=== PATIENT | female | born 1975 | race Two or more races ===

== ENCOUNTER 2016-06-11 11:03 | Emergency (ER) | payer MEDICARE, OTHER ==
--- NOTE | ~2016-06-11 | CT4 ---
[facility] A Service of [facility] RADIOLOGY TEXT RESULTS PATIENT: HELLEN DEMPSEY LOCATION: SED : 79 UNIT #: [id number] AGE: [address]: Kt Dempsey MD SEX: F ORDER DR: [id number] [address] [id number] E MR#: [id number] Acc #: [id number] NAME: HELLEN DEMPSEY : 1975 SEX: F STUDY DATE/TIME: 06/11/2016 11:26 UNIT: SED ROOM: STUDY DESCRIPTION: CT Abd and Pelv Wo Cont Attending Physician: Kt Dempsey M.D. Ordering Physician: Kt Dempsey M.D. Primary Care Physician[facility] REPORT This report is preliminary unless electronic signature is present. EXAM CT abdomen and pelvis, without contrast. HISTORY Generalized abdominal pain for the past 2 days with lower back pain. PROCEDURE Unenhanced CT of the abdomen and pelvis. This CT exam was performed with one or more of the following radiation dose reduction techniques: automatic exposure control, adjustment of mA and/or kV according to patient size, and iterative reconstruction. COMPARISON STUDIES 04/17/2016 FINDINGS ABDOMEN WITHOUT CONTRAST: The included lung bases are clear. The liver, spleen, adrenal glands, pancreas, gallbladder have an unremarkable unenhanced appearance. The bowel loops are nondilated. There is moderate colonic stool burden. Punctate, nonobstructing calculus in the left kidney. There is a punctate, nonobstructing calculus in the right kidney. There is no radiodense ureteral calculus or hydronephrosis. PELVIS WITHOUT CONTRAST: No pelvic mass or fluid. No radiodense bladder calculus. Previous hysterectomy. No aggressive-appearing bone lesion. IMPRESSION 1. No acute findings. 2. Tiny nonobstructing calculi in both kidneys. [facility] A Service [facility] RADIOLOGY TEXT RESULTS PATIENT: HELLEN DEMPSEY LOCATION: SED : 77 UNIT #: [id number] AGE: [address]: Kt Dempsey MD SEX: F ORDER DR: 3. Moderate colonic stool burden. Dictated by... Luke Snyder M.D. THIS IS AN ELECTRONICALLY VERIFIED REPORT Luke Snyder M.D. at 06/15/2016 7:02 AM KAREEM/feng TD: 06/11/2016 13:37 JOB #: [id number] MEDICAL IMAGING REPORT
[2016-06-11 10:57] LABS: URINE SOURCE CLEAN CATCH
[2016-06-11 11:01] LABS: URINE APPEARANCE CLEAR; URINE BILIRUBIN NEG (NEG); URINE BLOOD NEG (NEG); URINE COLOR YELLOW; URINE GLUCOSE NEG (NORM); URINE KETONE NEG (NEG); URINE LEUKOCYTE ESTERASE NEG (NEG); URINE NITRATE NEG (NEG); URINE PH 5.5 (5-8); URINE PROTEIN NEG (NEG); URINE SPECIFIC GRAVITY >=1.030 (1.003-1.035); URINE UROBILINOGEN 0.2 MG/DL (NORM)
[2016-06-11 11:02] LABS: MICRO INDICATED? NO
[~2016-06-11 11:03] MED LIST: ACETAMINOPHEN650 M3 PO; ACID RELIEF200 MG PO; ADVAIR 2501 DISK W/1 INH; ALBUTEROL SULFAT8 MG INH; ALBUTEROL17 GM INH; ALLERCLEAR10 MG PO; AMITRIPTYLINE H25 MG PO; AMITRYPTYLINE PO; AMOXICILLIN PO; ASPIRIN EC81 M1 PO; ASPIRIN325 M1 PO; AZITHROMYCIN250 MG PO; BACTRIM DS TABL1 TAB PO; BENTYL20 MG PO; BENZONATATE PO; CARAFATE1 G PO; CARAFATE1 GM PO; CELEXA PO; CELEXA20 MG PO; CIPRO PO; CIPRO500 MG/5 M PO; CITALOPRAM HBR40 M1; CITALOPRAM HBR40 MG PO; CLARITIN10 M2 PO; CLARITIN10 M3 PO; COLACE PO; DICLOFENAC PO; DICYCLOMINE HCL10 MG PO; DICYCLOMINE HCL20 MG PO; DOXYCYCLINE PO; DOXYCYCLINE150 MG PO; ESTRADIOL1 MG PO; FAMOTIDINE PO; FEOSOL PO; FIORINAL 50-321 EACH PO; FISH OIL 1,0001 CAP PO; FLAGYL PO; HYDROCODON-ACE1 EAC7 PO; IBUPROFEN PO; IBUPROFEN600 MG PO; IBUPROFEN800 MG PO; LEVAQUIN PO; LOPRESSOR PO; LORTAB 10-5001 EACH PO; LORTAB 5/500 TA1 TA1 PO; MEDROL4 MG/DOSE- PO; MEDROXYPROGEST2.5 MG PO; METOPROLOL TAR25 MG PO; MIRAPEX0.125 MG PO; MIRAPEX0.25 MG PO; MONTELUKAST SOD10 MG PO; NAPROSYN500 MG PO; NASONEX17 GM; OMEPRAZOLE20 M2 PO; OMEPRAZOLE40 M1 PO; PANTOPRAZOLE SO40 MG PO; PEPCID PO; PERCOCET5/325 PO; PHENAZOPYRIDIN100 MG PO; PHENERGAN PO; PHENERGAN25 M1 PO; PHENERGAN25 MG PO; PHENTERMINE H37.5 M1 PO; PHENTERMINE HCL15 MG PO; PREDNISONE PO; PREDNISONE1 MG; PREDNISONE10 MG/DOSE PO; PREMARIN0.625 MG PO; PREVACID PO; PRILOSEC PO; PRILOSEC20 MG PO; PROAIR HFA8.5 GM INH; PROTONIX PO; PYRIDIUM PO; RA CALCIUM PO; RANITIDINE HCL150 M1 PO; REGLAN10 MG PO; REQUIP1 MG PO; SIMVASTATIN20 MG PO; SIMVASTATIN40 MG PO; SINGULAIR PO; SYMBICORT INH; TAGAMET200 MG PO; VICODIN 5/500 T1 TAB PO; VICODIN PO; VITAMIN D-3 4001 TAB PO; VITAMIN D50000 UNIT PO; VIVELLE B TD; VIVELLE-DO1 PATCH.B2 TD; VOLTAREN75 MG PO; ZANTAC PO; ZANTAC150 MG PO; ZITHROMAX PO; ZOCOR PO; ZOCOR20 MG PO; ZOFRAN ODT4 MG PO; ZOFRAN8 MG PO; [UNRECOGNIZED DRUG - OTHER] TD
[2016-06-11 11:04] LABS: BASOPHIL# 0.1 X10e3 (0-0.3); BASOPHIL% 0.9 % (0-2.5); EOSINOPHIL# 0.2 X10e3 (0-0.7); HEMATOCRIT 37.5 % (35.0-45.0); HEMOGLOBIN 12.5 gm/dL (12.0-16.0); LYMPHOCYTE% 37.7 % (17.0-45.0); MEAN CELL VOLUME 86.4 FL (83-96); MEAN CORPUSCULAR HEMOGLOBIN 28.9 PG (28-34); MEAN CORPUSCULAR HGB CONC 33.4 g/dL (30-36); MEAN PLATELET VOLUME 7.3 FL (6.5-11.5); MONOCYTE# 0.5 X10e3 (0-1.0); MONOCYTE% 6.7 % (3.0-12.0); NEUTROPHIL# 4.2 X10e3 (1.5-7.1); NEUTROPHIL% 52.7 % (40-75); PLATELET COUNT 335 X10e3 (140-420); RED BLOOD COUNT 4.34 X10e (3.90-5.30); WHITE BLOOD COUNT 7.9 X10e3 (4.0-10.5)
[2016-06-11 11:06] LABS: DIFF IND NO
[2016-06-11 11:21] LABS: ALBUMIN SERUM 4.6 g/dL (3.5-5.0); ALKALINE PHOSPHATASE 65 U/L (32-92); ALT (SGPT) 21 U/L (10-40); AMYLASE 26 U/L (0-46); AST (SGOT) 21 U/L (10-42); BILIRUBIN,TOTAL 0.7 mg/dL (0.2-2.0); BLOOD UREA NITROGEN 11 mg/dL (9-23); BUN/CREATININE RATIO 18.33; CALCIUM SERUM 9.1 mg/dL (8.4-10.2); CARBON DIOXIDE 27 mmol/L (22-31); CHLORIDE 103 mmol/L (100-111); CREATININE SERUM 0.6 mg/dL (0.6-1.4); GLOM FILT RATE Estimated ABOVE60 mL/min (>60); GLUCOSE FASTING 90 mg/dL (70-110); LIPASE 30 U/L (22-51); POTASSIUM 3.5 mmol/L (3.5-5.1); PROTEIN TOTAL SERUM 7.3 g/dL (6.0-8.3); SODIUM 138 mmol/L (135-145)
[2016-06-11 11:29] LABS: BILIRUBIN, DIRECT <0.1 mg/dL (0.0-0.2); BILIRUBIN,INDIRECT 0.6 mg/dL (0.0-0.9)
[2016-12-25] MEDS ORDERED: AMITRYPTYLINE (15:20)
[2016-12-25] MEDS ORDERED: LINZESS72 MCG (15:20)
[2016-12-25] MEDS ORDERED: LIPITOR (15:21)
== END 2016-06-11 12:08 | disposition home or self-care (01) ==
LOC: SED 11:03
PROVIDERS: Emergency Medicine
DX: R10.9 Unspecified abdominal pain (principal); M54.9 Dorsalgia, unspecified; I10 Essential (primary) hypertension
CPT/HCPCS: 36415; 74176; 80048; 80076; 81003; 82150; 83690; 84703; 85025; 96374; 99284; J1885

== ENCOUNTER 2016-07-03 18:43 | Emergency (ER) | payer MEDICARE, OTHER ==
--- NOTE | ~2016-07-03 | CR72 ---
[facility] A Service of [facility] RADIOLOGY TEXT RESULTS PATIENT: HELLEN DEMPSEY LOCATION: SED : 77 UNIT #: [id number] AGE: [address]: Jamar Danielson MD SEX: F ORDER DR: [id number] [place] [id number] E MR#: [id number] Acc #: [id number] NAME: HELLEN DEMPSEY : 1975 SEX: F STUDY DATE/TIME: 07/03/2016 19:01 UNIT: SED ROOM: STUDY DESCRIPTION: CR Chest Single View Portable Attending Physician: Jamar Danielson M.D. Ordering Physician: Jamar Danielson M.D. Primary Care Physician: [facility] IMAGING REPORT This report is preliminary unless electronic signature is present. EXAM Chest x-ray HISTORY Cough and chest pain for 2 days. History of hypertension, COPD, smoker. COMMENT Single frontal portable view of the chest, timed 1901, 07/03/2016 COMPARISON 05/22/2016 FINDINGS Cardiac silhouette size is top normal. There is a small amount of probable atelectasis at the right lung base, but please exclude any concern for early pneumonia or aspiration. Lungs are otherwise clear and there is no congestive failure, pleural effusion or pneumothorax suspected. IMPRESSION Small amount of airspace disease at the right lung base medially. It is probably a small amount of atelectasis, but given history, please exclude clinical concern for aspiration or early pneumonia with follow up to clearing recommended. Dictated by... Alejandra Campos M.D. THIS IS AN ELECTRONICALLY VERIFIED REPORT Alejandra Campos M.D. at 07/04/2016 3:09 PM [facility] A Service [facility] RADIOLOGY TEXT RESULTS PATIENT: HELLEN DEMPSEY LOCATION: SED : 77 UNIT #: [id number] AGE: [address]: Jamar Danielson MD SEX: F ORDER DR: MELIDA/tyler TD: 07/04/2016 14:46 JOB #: [id number] MEDICAL IMAGING REPORT Page 1 of 1
[2016-07-03 18:43] LABS: URINE SOURCE CLEAN CATCH
[2016-07-03 18:50] LABS: URINE APPEARANCE CLEAR; URINE BILIRUBIN NEG (NEG); URINE BLOOD NEG (NEG); URINE COLOR YELLOW; URINE GLUCOSE NEG (NORM); URINE KETONE NEG (NEG); URINE LEUKOCYTE ESTERASE NEG (NEG); URINE NITRATE NEG (NEG); URINE PROTEIN NEG (NEG); URINE SPECIFIC GRAVITY 1.015 (1.003-1.035); URINE UROBILINOGEN 0.2 MG/DL (NORM)
[2016-07-03] MEDS ORDERED: PROTONIX PO (18:52)
[2016-07-03] MEDS ORDERED: BENTYL20 MG PO (18:52)
[2016-07-03] MEDS ORDERED: AMOXICILLIN500 M1 PO (18:53)
[2016-07-03] MEDS ORDERED: ZOCOR PO (18:53)
[2016-07-03 19:01] LABS: MICRO INDICATED? NO
[2016-07-03 21:05] LABS: BASOPHIL# 0.1 X10e3 (0-0.3); BASOPHIL% 0.7 % (0-2.5); EOSINOPHIL# 0.1 X10e3 (0-0.7); EOSINOPHIL% 1.5 % (0.0-7.0); HEMATOCRIT 40.5 % (35.0-45.0); LYMPHOCYTE# 2.7 X10e3 (1.0-3.5); LYMPHOCYTE% 33.2 % (17.0-45.0); MEAN CELL VOLUME 86.3 FL (83-96); MEAN CORPUSCULAR HEMOGLOBIN 29.8 PG (28-34); MEAN CORPUSCULAR HGB CONC 34.6 g/dL (30-36); MEAN PLATELET VOLUME 7.9 FL (6.5-11.5); MONOCYTE# 0.5 X10e3 (0-1.0); MONOCYTE% 5.6 % (3.0-12.0); NEUTROPHIL# 4.8 X10e3 (1.5-7.1); PLATELET COUNT 357 X10e3 (140-420); RED BLOOD COUNT 4.69 X10e (3.90-5.30); RED CELL DISTRIBUTION WIDTH 12.6 % (11.0-15.5); WHITE BLOOD COUNT 8.1 X10e3 (4.0-10.5)
[2016-07-03 21:07] LABS: DIFF IND NO
[2016-07-03 21:08] LABS: ALBUMIN SERUM 4.6 g/dL (3.5-5.0); BILIRUBIN,TOTAL 0.4 mg/dL (0.2-2.0); BUN/CREATININE RATIO 17.14; CALCIUM SERUM 9.5 mg/dL (8.4-10.2); CREATININE SERUM 0.7 mg/dL (0.6-1.4); GLOM FILT RATE Estimated 109.9 mL/min (>60); POTASSIUM 4.1 mmol/L (3.5-5.1); PROTEIN TOTAL SERUM 8.1 g/dL (6.0-8.3)
[2016-07-03 21:19] LABS: POC - CKMB <1.0 ng/mL (0.0-7.9); POC - MYOGLOBIN 42.8 ng/mL (0.0-169.0); POC - TROPONIN <0.05 ng/mL (<=0.05)
[2016-12-25] MEDS ORDERED: AMITRYPTYLINE (15:20)
[2016-12-25] MEDS ORDERED: LINZESS72 MCG (15:20)
[2016-12-25] MEDS ORDERED: LIPITOR (15:21)
== END 2016-07-03 21:30 | disposition home or self-care (01) ==
LOC: SED 18:43
PROVIDERS: Emergency Medicine
DX: J18.9 Pneumonia, unspecified organism (principal); M94.0 Chondrocostal junction syndrome [Tietze]; F17.200 Nicotine dependence, unspecified, uncomplicated; J44.9 Chronic obstructive pulmonary disease, unspecified; K21.9 Gastro-esophageal reflux disease without esophagitis; E78.5 Hyperlipidemia, unspecified; Z90.710 Acquired absence of both cervix and uterus
CPT/HCPCS: 71010; 80053; 81003; 82553; 83874; 84484; 85025; 96361; 96365; 96375; 99284; J0696; J1170; J1885; J2405; J3360

== ENCOUNTER 2016-07-04 23:59 | Emergency (ER) | payer MEDICARE, OTHER ==
--- NOTE | ~2016-07-04 | EKG ---
PATIENT: HELLEN DEMPSEY UNIT #: [id number] Ventricular Rate: 102 BPM Atrial Rate: 102 BPM P-R Interval: 128 ms QRS Duration: 74 ms Q-T Interval: 352 ms QTC Calculation(Bezet): 458 ms P [place]: 35 degrees Calculated R [place]: 66 degrees Calculated T [place]: 10 degrees Diagnosis Line: Sinus tachycardia Diagnosis Line: Possible Left atrial enlargement Diagnosis Line: Borderline ECG Diagnosis Line: When compared with ECG of 22-MAY-2016 13:12, Diagnosis Line: No significant change was found Diagnosis Line: Confirmed by KATHY MANZO MD ([id number]) on 07/06/2016 Diagnosis Line: 11:05:40 PM INTERPRETING MD: JOVANY RUCKER
--- NOTE | ~2016-07-04 | CT16 ---
[facility] A Service of [facility] RADIOLOGY TEXT RESULTS PATIENT: HELLEN DEMPSEY LOCATION: [facility] : 77 UNIT #: [id number] AGE: [address]: Kathleen Maya MD SEX: F ORDER DR: [id number] [facility] [address] [facility]. [place], [place] [address] [id number] E MR#: [id number] Acc #: [id number] NAME: HELLEN DEMPSEY : 1975 SEX: F STUDY DATE/TIME: 07/05/2016 2:04 UNIT: [facility] ROOM: STUDY DESCRIPTION: CT Angio Chest for PE Attending Physician: Kathleen Maya M.D. Ordering Physician: Kathleen Maya M.D. Primary Care Physician: [facility] MEDICAL IMAGING REPORT This report is preliminary unless electronic signature is present EXAM CTA of the chest PE protocol INDICATION Shortness of air. Left-sided chest pain for the past 3 days. PROCEDURE Contrast-enhanced CTA of the chest attention on opacification of pulmonary arteries. Coronal 3-D MIP sagittal reformatted images reconstructed and submitted. 80 mL Isovue-370. COMPARISON 11/16/[address] exam was performed with one or more of the following radiation dose reduction techniques: automatic exposure control, adjustment of mA and/or kV according to patient size, and iterative reconstruction. FINDINGS No evidence for pulmonary embolus or acute aortic injury. No adenopathy. No acute findings in the included upper abdomen. No aggressive appearing bone lesion. The lungs are clear. IMPRESSION No acute findings. No evidence for pulmonary embolus. Dictated by... Luke Snyder M.D. THIS IS AN ELECTRONICALLY VERIFIED REPORT Luke Snyder M.D. at 07/05/2016 9:55 PM KAREEM/tish [facility] A Service of [facility] RADIOLOGY TEXT RESULTS PATIENT: HELLEN DEMPSEY LOCATION: [facility] : 77 UNIT #: [id number] AGE: [address]: Kathleen Maya MD SEX: F ORDER DR: TD: 07/05/2016 08:03 JOB #: [id number] MEDICAL IMAGING REPORT Page 1 of 1 COPY
[~2016-07-04 23:59] MED LIST changes: +AMOXICILLIN500 M1 PO
[2016-07-05 01:00] LABS: POC - CKMB <1.0 ng/mL (0.0-7.9); POC - TROPONIN <0.05 ng/mL (<=0.05)
[2016-07-05 01:10] LABS: BASOPHIL# 0.1 X10e3 (0-0.3); BASOPHIL% 0.6 % (0-2.5); EOSINOPHIL# 0.2 X10e3 (0-0.7); EOSINOPHIL% 2.3 % (0.0-7.0); HEMATOCRIT 41.2 % (35.0-45.0); HEMOGLOBIN 13.6 gm/dL (12.0-16.0); LYMPHOCYTE# 3.6 X10e3 (1.0-3.5); LYMPHOCYTE% 39.7 % (17.0-45.0); MEAN CELL VOLUME 87.1 FL (83-96); MEAN CORPUSCULAR HEMOGLOBIN 28.7 PG (28-34); MEAN CORPUSCULAR HGB CONC 32.9 g/dL (30-36); MEAN PLATELET VOLUME 7.7 FL (6.5-11.5); MONOCYTE# 0.4 X10e3 (0-1.0); MONOCYTE% 4.8 % (3.0-12.0); NEUTROPHIL# 4.8 X10e3 (1.5-7.1); NEUTROPHIL% 52.6 % (40-75); PLATELET COUNT 346 X10e3 (140-420); RED BLOOD COUNT 4.73 X10e (3.90-5.30); WHITE BLOOD COUNT 9.1 X10e3 (4.0-10.5)
[2016-07-05 01:13] LABS: DIFF IND NO
[2016-07-05 01:34] LABS: INFLUENZA A NEG (NEG); INFLUENZA B NEG (NEG)
[2016-07-05 01:42] LABS: ALBUMIN SERUM 4.8 g/dL (3.5-5.0); ALKALINE PHOSPHATASE 68 U/L (32-92); ALT (SGPT) 26 U/L (10-40); AST (SGOT) 22 U/L (10-42); BILIRUBIN,TOTAL 0.4 mg/dL (0.2-2.0); BLOOD UREA NITROGEN 11 mg/dL (9-23); BUN/CREATININE RATIO 18.33; CALCIUM SERUM 9.9 mg/dL (8.4-10.2); CARBON DIOXIDE 27 mmol/L (22-31); CHLORIDE 104 mmol/L (100-111); CREATININE SERUM 0.6 mg/dL (0.6-1.4); GLOM FILT RATE Estimated 115.6 mL/min (>60); GLUCOSE FASTING 92 mg/dL (70-110); LIPASE 24 U/L (22-51); POTASSIUM 3.9 mmol/L (3.5-5.1); PROTEIN TOTAL SERUM 8.2 g/dL (6.0-8.3); SODIUM 141 mmol/L (135-145)
[2016-07-05 01:44] LABS: BILIRUBIN, DIRECT <0.1 mg/dL (0.0-0.2); BILIRUBIN,INDIRECT 0.3 mg/dL (0.0-0.9)
[2016-12-25] MEDS ORDERED: AMITRYPTYLINE (15:20)
[2016-12-25] MEDS ORDERED: LINZESS72 MCG (15:20)
[2016-12-25] MEDS ORDERED: LIPITOR (15:21)
== END 2016-07-05 02:55 | disposition home or self-care (01) ==
LOC: CED 23:59
PROVIDERS: Student in an Organized Health Care Education/Training Program
DX: R09.1 Pleurisy (principal); I10 Essential (primary) hypertension; J44.9 Chronic obstructive pulmonary disease, unspecified; F17.210 Nicotine dependence, cigarettes, uncomplicated; Z79.899 Other long term (current) drug therapy
CPT/HCPCS: 36415; 71275; 80048; 80076; 82553; 83690; 83880; 84484; 85025; 87804; 93005; 96361; 96374; 96375; 99284; J2270; J2405; Q9967

== ENCOUNTER 2016-08-04 13:19 | Emergency (ER) | payer MEDICARE, OTHER ==
--- NOTE | ~2016-08-04 | CR230 ---
[facility]. [facility] A Service of [facility] & [facility] RADIOLOGY TEXT RESULTS PATIENT: HELLEN DEMPSEY LOCATION: SED : 77 UNIT #: [id number] AGE: [address]: Justin Cabral MD SEX: F ORDER DR: [id number] [address] [id number] E MR#: [id number] Acc #: [id number] NAME: HELLEN DEMPSEY : 1975 SEX: F STUDY DATE/TIME: 08/04/2016 13:28 UNIT: SED ROOM: STUDY DESCRIPTION: CR Shoulder Min 2 View Rt Attending Physician: Justin Cabral M.D. Ordering Physician: Justin Cabral M.D. Primary Care Physician: [facility] MEDICAL IMAGING REPORT This report is preliminary unless electronic signature is present. EXAM Right shoulder series 08/04/2016 HISTORY Pain status post fall. Fell, hit right side, pain, 3 days ago. AP internal and external rotation views of the shoulder are presented with transscapular view. Poor quality study. Clothing artifact overlies relevant anatomy. FINDINGS No traumatic fracture or malalignment. Acromioclavicular and glenohumeral joint relationships are normal. The periarticular soft tissues show no clearly acute abnormality. There is a faint calcification projecting in the subcutaneous fat cephalad to the acromion favored to be chronic in time course. The visualized ribs are intact. Visualized pulmonary parenchyma clear. Dictated by... Raúl Forrest M.D. THIS IS AN ELECTRONICALLY VERIFIED REPORT Raúl Forrest M.D. at 08/05/2016 10:55 PM Jethro TD: 08/04/2016 15:21 JOB #: [id number] MEDICAL IMAGING REPORT Page 1 of 1
--- NOTE | ~2016-08-04 | CR282 ---
[facility]. [facility] A Service of [facility] RADIOLOGY TEXT RESULTS PATIENT: HELLEN DEMPSEY LOCATION: SED : 79 UNIT #: [id number] AGE: [address]: Justin Cabral MD SEX: F ORDER DR: [id number] [address] [address] [id number] E MR#: [id number] Acc #: [id number] NAME: HELLEN DEMPSEY : 1975 SEX: F STUDY DATE/TIME: 08/04/2016 13:28 UNIT: SED ROOM: STUDY DESCRIPTION: CR Wrist Min 3 View Rt Attending Physician: Justin Cabral M.D. Ordering Physician: Justin Cabral M.D. [facility] REPORT This report is preliminary unless electronic signature is present. EXAM Right wrist series. DATE OF EXAM 08/04/2016 HISTORY Fall. Pain. 3 days duration. Fell. Hit right side. Pain. FINDINGS AP, lateral and oblique radiographs of the right wrist are presented. No traumatic fracture or malalignment. Joint spaces are intact. No soft tissue defect, subcutaneous air or radiodense foreign body. Dictated by... Raúl Forrest M.D. THIS IS AN ELECTRONICALLY VERIFIED REPORT Raúl Forrest M.D. at 08/05/2016 10:55 PM MARY KATE/yamel TD: 08/04/2016 15:39 JOB #: [id number] MEDICAL IMAGING REPORT Page 1 of 1
--- NOTE | ~2016-08-04 | CR94 ---
[facility] A Service of [facility] & [facility] RADIOLOGY TEXT RESULTS PATIENT: HELLEN DEMPSEY LOCATION: SED : 77 UNIT #: [id number] AGE: [address]: Justin Cabral MD SEX: F ORDER DR: [id number] [address] [address] [id number] E MR#: [id number] Acc #: [id number] NAME: HELLEN DEMPSEY : 1975 SEX: F STUDY DATE/TIME: 08/04/2016 13:28 UNIT: SED ROOM: STUDY DESCRIPTION: CR Elbow Min 3 Views Rt Attending Physician: Justin Cabral M.D. Ordering Physician: Justin Cabral M.D. Primary Care Physician: [facility] REPORT This report is preliminary unless electronic signature is present. EXAM Right elbow series, 08/04/2016. HISTORY Pain status post fall. Fall, pain, 3 days duration. Fell his right side pain. TECHNIQUE AP, lateral and oblique radiographs of the right elbow are presented. FINDINGS No traumatic fracture or malalignment. The joint spaces are intact. No joint effusion. No soft tissue defect, subcutaneous air, or radiodense foreign body. Chronic bony excrescence from the posterior aspect of the olecranon process. Dictated by... Raúl Forrest M.D. THIS IS AN ELECTRONICALLY VERIFIED REPORT Raúl Forrest M.D. at 08/05/2016 10:55 PM MARY KATE/jacobo TD: 08/04/2016 15:26 JOB #: [id number] MEDICAL IMAGING REPORT Page 1 of 1
[2016-12-25] MEDS ORDERED: AMITRYPTYLINE (15:20)
[2016-12-25] MEDS ORDERED: LINZESS72 MCG (15:20)
[2016-12-25] MEDS ORDERED: LIPITOR (15:21)
== END 2016-08-04 14:16 | disposition home or self-care (01) ==
LOC: SED 13:19
DX: S50.01XA Contusion of right elbow, initial encounter (principal); I10 Essential (primary) hypertension; J44.9 Chronic obstructive pulmonary disease, unspecified; W01.0XXA Fall on same level from slipping, tripping and stumbling without subsequent striking against object, initial encounter
CPT/HCPCS: 29260; 73030; 73080; 73110; 99284

== ENCOUNTER 2016-08-23 21:27 | Emergency (ER) | payer MEDICARE, OTHER ==
--- NOTE | ~2016-08-23 | CT2 ---
[facility] A Service of [facility] RADIOLOGY TEXT RESULTS PATIENT: HELLEN GARCIA LOCATION: SED : 79 UNIT #: [id number] AGE: [address]: Raúl Galan SEX: F ORDER DR: [id number] [address] [address] [id number] E MR#: [id number] Acc #: [id number] NAME: HELLEN GARCIA : 1975 SEX: F STUDY DATE/TIME: 08/23/2016 22:59 UNIT: SED ROOM: STUDY DESCRIPTION: CT Abd and Pelv W Cont Attending Physician: Raúl Galan P.A.-C. Ordering Physician: Raúl Galan P.A.-C. Primary Care Physician: [facility] IMAGING REPORT This report is preliminary unless electronic signature is present. EXAM CT abdomen and pelvis INDICATION Vomiting and diarrhea for [address] of the abdomen and pelvis with p.o. and IV contrast utilizing 100 mL Isovue-370 IV contrast. Coronal and sagittal reconstructions were obtained. This CT exam was performed with one or more of the following radiation dose reduction techniques: automatic exposure control, adjustment of mA and/or kV according to patient size, and iterative reconstruction. COMPARISON CT abdomen and pelvis dated 04/17/2016. FINDINGS ABDOMEN: There is mild area of circumferential thickening of the ascending colon. There is some associated pericolonic inflammation. This is indicative of a colitis. There is an increased number of small lymph nodes in the right lower quadrant mesentery. The appendix is not clearly identified and may be surgically absent. There is a small umbilical hernia. The solid abdominal organs enhance normally. The gallbladder is not distended. PELVIS: No pelvic mass. Bladder is unremarkable. The uterus and ovaries are not identified and are presumed to be surgically absent. No enlarged pelvic or inguinal lymph nodes. [facility] A Service of [facility] RADIOLOGY TEXT RESULTS PATIENT: HELLEN GARCIA LOCATION: SED : [birth year] UNIT #: [id number] AGE: [address]: Raúl Galan SEX: F ORDER DR: No acute osseous abnormalities. There is asymmetric fusion of the right sacroiliac joint. 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 IMPRESSION 1. Mild circumferential thickening of the ascending colon consistent with a colitis. 2. No abscess or perforation. Dictated by... Alf Artis M.D. THIS IS AN ELECTRONICALLY VERIFIED REPORT Alf Artis M.D. at 08/24/2016 9:08 PM WOJCIECH/malissa TD: 08/24/2016 03:06 JOB #: [id number] MEDICAL IMAGING REPORT Page 1 of 1
[2016-08-23 22:40] LABS: BASOPHIL% 0.4 % (0-2.5); EOSINOPHIL% 0.2 % (0.0-7.0); HEMATOCRIT 36.5 % (35.0-45.0); HEMOGLOBIN 12.7 gm/dL (12.0-16.0); LYMPHOCYTE# 1.4 X10e3 (1.0-3.5); LYMPHOCYTE% 16.2 % (17.0-45.0); MEAN CELL VOLUME 84.4 FL (83-96); MEAN CORPUSCULAR HEMOGLOBIN 29.3 PG (28-34); MEAN CORPUSCULAR HGB CONC 34.8 g/dL (30-36); MEAN PLATELET VOLUME 7.3 FL (6.5-11.5); MONOCYTE# 0.5 X10e3 (0-1.0); MONOCYTE% 5.7 % (3.0-12.0); NEUTROPHIL# 6.9 X10e3 (1.5-7.1); NEUTROPHIL% 77.5 % (40-75); PLATELET COUNT 291 X10e3 (140-420); RED BLOOD COUNT 4.32 X10e (3.90-5.30); WHITE BLOOD COUNT 8.9 X10e3 (4.0-10.5)
[2016-08-23 22:41] LABS: DIFF IND NO
[2016-08-23 22:52] LABS: ALBUMIN SERUM 4.4 g/dL (3.5-5.0); BILIRUBIN, DIRECT 0.1 mg/dL (0.0-0.2); BILIRUBIN,INDIRECT 0.4 mg/dL (0.0-0.9); BILIRUBIN,TOTAL 0.5 mg/dL (0.2-2.0); BUN/CREATININE RATIO 11.42; CALCIUM SERUM 9.2 mg/dL (8.4-10.2); CREATININE SERUM 0.7 mg/dL (0.6-1.4); GLOM FILT RATE Estimated 109.1 mL/min (>60); POTASSIUM 3.9 mmol/L (3.5-5.1); PROTEIN TOTAL SERUM 7.2 g/dL (6.0-8.3)
[2016-08-23 23:50] LABS: URINE SOURCE CLEAN CATCH
[2016-08-23 23:55] LABS: URINE APPEARANCE CLEAR; URINE BILIRUBIN NEG (NEG); URINE BLOOD NEG (NEG); URINE COLOR YELLOW; URINE GLUCOSE NEG (NORM); URINE KETONE NEG (NEG); URINE LEUKOCYTE ESTERASE NEG (NEG); URINE NITRATE NEG (NEG); URINE PH 5.5 (5-8); URINE PROTEIN NEG (NEG); URINE SPECIFIC GRAVITY <=1.005 (1.003-1.035); URINE UROBILINOGEN 0.2 MG/DL (NORM)
[2016-08-23 23:56] LABS: MICRO INDICATED? NO
[2016-12-25] MEDS ORDERED: LINZESS72 MCG (15:20)
[2016-12-25] MEDS ORDERED: AMITRYPTYLINE (15:20)
[2016-12-25] MEDS ORDERED: LIPITOR (15:21)
== END 2016-08-24 00:45 | disposition home or self-care (01) ==
LOC: SED 21:27
PROVIDERS: Physician Assistant
DX: K52.9 Noninfective gastroenteritis and colitis, unspecified (principal); I10 Essential (primary) hypertension; J45.909 Unspecified asthma, uncomplicated
CPT/HCPCS: 36415; 74177; 80048; 80076; 81003; 83690; 85025; 96361; 96374; 96375; 99284; J1170; J2270; J2405; Q9967

== ENCOUNTER 2016-10-03 11:12 | Emergency (ER) | payer MEDICARE, OTHER ==
--- NOTE | ~2016-10-03 | CT2 ---
[facility] A Service of [facility] RADIOLOGY TEXT RESULTS PATIENT: HELLEN GARCIA LOCATION: SED : 79 UNIT #: [id number] AGE: [address]: NUBIA WATERMAN SEX: F ORDER DR: [id number] [place] [id number] E MR#: [id number] Acc #: [id number] NAME: HELLEN GARCIA : 1975 SEX: F STUDY DATE/TIME: 10/03/2016 12:58 UNIT: SED ROOM: STUDY DESCRIPTION: CT Abd and Pelv W Cont Attending Physician: Nubia Waterman Aprn Ordering Physician: Nubia Waterman Aprn Primary Care Physician: [facility] IMAGING REPORT This report is preliminary unless electronic signature is present. EXAM CT abdomen and pelvis with IV contrast HISTORY Abdomen pain, vomiting and diarrhea for [address] exam was performed with one or more of the following radiation dose reduction techniques: automatic exposure control, adjustment of mA and/or kV according to patient size, and iterative reconstruction. FINDINGS CT abdomen and pelvis was performed with IV contrast. CT ABDOMEN: Mild diffuse fatty infiltration of the liver. No hepatic mass or biliary dilatation. Gallbladder, spleen, pancreas, right kidney, and adrenal glands are normal. Two small nonobstructing stones in the left kidney, each measuring 2 mm. No bowel dilatation. No ascites. Normal caliber abdominal aorta. CT PELVIS: No pelvic mass or fluid collection. No bowel dilatation. Hysterectomy. Urinary bladder is unremarkable. Bony fusion across the right sacroiliac joint. IMPRESSION 1. No acute findings in the abdomen or pelvis. 2. No free fluid or inflammatory changes. 3. Two small nonobstructing stones in the left kidney, each measuring 2 mm. 4. Bony fusion across the right sacroiliac joint. [facility] A Service [facility] RADIOLOGY TEXT RESULTS PATIENT: HELLEN GARCIA LOCATION: SED : 79 UNIT #: [id number] AGE: [address]: NUBIA WATERMAN SEX: F ORDER DR: Dictated by... Doug Enriquez M.D. THIS IS AN ELECTRONICALLY VERIFIED REPORT Doug Enriquez M.D. at 10/04/2016 5:33 PM JAMESON/malissa TD: 10/04/2016 00:07 JOB #: [id number] MEDICAL IMAGING REPORT Page 1 of 1
[2016-10-03 12:12] LABS: BASOPHIL% 0.6 % (0-2.5); EOSINOPHIL# 0.1 X10e3 (0-0.7); EOSINOPHIL% 1.9 % (0.0-7.0); HEMATOCRIT 37.2 % (35.0-45.0); HEMOGLOBIN 12.6 gm/dL (12.0-16.0); LYMPHOCYTE# 2.5 X10e3 (1.0-3.5); LYMPHOCYTE% 33.2 % (17.0-45.0); MEAN CELL VOLUME 85.4 FL (83-96); MEAN PLATELET VOLUME 7.5 FL (6.5-11.5); MONOCYTE# 0.5 X10e3 (0-1.0); MONOCYTE% 5.9 % (3.0-12.0); NEUTROPHIL# 4.5 X10e3 (1.5-7.1); NEUTROPHIL% 58.4 % (40-75); PLATELET COUNT 296 X10e3 (140-420); RED BLOOD COUNT 4.36 X10e (3.90-5.30); RED CELL DISTRIBUTION WIDTH 13.6 % (11.0-15.5); WHITE BLOOD COUNT 7.7 X10e3 (4.0-10.5)
[2016-10-03 12:15] LABS: DIFF IND NO
[2016-10-03 12:18] LABS: URINE APPEARANCE CLEAR; URINE BILIRUBIN NEG (NEG); URINE BLOOD NEG (NEG); URINE COLOR YELLOW; URINE GLUCOSE NEG (NORM); URINE KETONE NEG (NEG); URINE LEUKOCYTE ESTERASE NEG (NEG); URINE NITRATE NEG (NEG); URINE PROTEIN NEG (NEG); URINE SOURCE CLEAN CATCH; URINE UROBILINOGEN 0.2 MG/DL (NORM)
[2016-10-03 12:19] LABS: MICRO INDICATED? NO
[2016-10-03 12:36] LABS: ALBUMIN SERUM 4.4 g/dL (3.5-5.0); ALKALINE PHOSPHATASE 75 U/L (32-92); ALT (SGPT) 36 U/L (10-40); AMYLASE 45 U/L (0-46); AST (SGOT) 27 U/L (10-42); BILIRUBIN,TOTAL 0.4 mg/dL (0.2-2.0); BLOOD UREA NITROGEN 13 mg/dL (9-23); BUN/CREATININE RATIO 21.66; CALCIUM SERUM 8.5 mg/dL (8.4-10.2); CARBON DIOXIDE 26 mmol/L (22-31); CHLORIDE 101 mmol/L (100-111); CREATININE SERUM 0.6 mg/dL (0.6-1.4); GLOM FILT RATE Estimated 114.8 mL/min (>60); GLUCOSE FASTING 92 mg/dL (70-110); LIPASE 39 U/L (22-51); POTASSIUM 3.9 mmol/L (3.5-5.1); PROTEIN TOTAL SERUM 7.4 g/dL (6.0-8.3); SODIUM 130 mmol/L (135-145)
[2016-10-03 12:41] LABS: BILIRUBIN, DIRECT <0.1 mg/dL (0.0-0.2); BILIRUBIN,INDIRECT 0.3 mg/dL (0.0-0.9)
[2016-12-25] MEDS ORDERED: AMITRYPTYLINE (15:20)
[2016-12-25] MEDS ORDERED: LINZESS72 MCG (15:20)
[2016-12-25] MEDS ORDERED: LIPITOR (15:21)
== END 2016-10-03 14:32 | disposition home or self-care (01) ==
LOC: SED 11:12
PROVIDERS: Nurse Practitioner Family
DX: R10.84 Generalized abdominal pain (principal); R11.2 Nausea with vomiting, unspecified; R19.7 Diarrhea, unspecified; E78.5 Hyperlipidemia, unspecified; I10 Essential (primary) hypertension; J45.909 Unspecified asthma, uncomplicated; F32.9 Major depressive disorder, single episode, unspecified; Z87.442 Personal history of urinary calculi; F17.200 Nicotine dependence, unspecified, uncomplicated
CPT/HCPCS: 36415; 74177; 80048; 80076; 81003; 82150; 83690; 85025; 96361; 96374; 96375; 99284; J1885; J2405; Q9967

== ENCOUNTER 2016-11-13 16:35 | Emergency (ER) | payer MEDICARE, OTHER ==
[~2016-11-13] VITALS: Ht 167.6 cm; Wt 90.7 kg
[2016-12-25] MEDS ORDERED: LINZESS72 MCG (15:20)
[2016-12-25] MEDS ORDERED: AMITRYPTYLINE (15:20)
[2016-12-25] MEDS ORDERED: LIPITOR (15:21)
== END 2016-11-13 20:30 | disposition left against medical advice (07) ==
LOC: SED 16:35
DX: Z53.21 Procedure and treatment not carried out due to patient leaving prior to being seen by health care provider (principal)